=== PATIENT | female | born 1985 | race Caucasian/White ===

== ENCOUNTER 2019-02-07 10:30 | Inpatient (IN) | payer MEDICAID ==
[~2019-02-07] VITALS: Ht 147.3 cm; Wt 68.8 kg
[~2019-02-07 10:30] MED LIST: PHENYLephrine 10 MG INJ ONE
--- NOTE | 2019-02-07 11:58 | NSTRPT ---
NST Information Datetime Report Generated by CPN: 02/07/2019 11:58 Datetime: 02/01/2019 10:52 NST Information EGA: 36.5 Test Number: 6 Time on Monitor: 02/01/2019 11:44 Time off Monitor: 02/01/2019 12:08 NST Duration (Min): 24 Reason for NST: Cholestasis Test and Monitor Explained: Monitor Explained; Test Explained; Verbalized Understanding Pulse: 74 Resp: 18 SBP: 102 DBP: 56 Test Evaluation NST Interventions: None Patient States Movement: Present Contraction Frequency: NONE FHR Baseline : 140 Variability: Moderate 6-25bpm Accelerations: 15X15 Decelerations: None FHR Category: Category I NST Results: Reactive Comments: To u/s. SHARON 10.4CM. cephailc. EFW: 3127gm. 6 lbs. 14oz. 56%, AC: 78%, Electronically Signed By E-Signature: with User ID: [id number] Datetime: 01/28/2019 11:10 NST Information EGA: 36.1 NST Duration (Min): 21 Datetime: 01/25/2019 09:52 NST Information EGA: 35.5 NST Duration (Min): 33 Electronically Signed By E-Signature: with User ID: [id number] Datetime: 01/21/2019 08:45 NST Information EGA: 35.1 NST Duration (Min): 31 Datetime: 01/13/2019 08:12 NST Information EGA: 34.0 NST Duration (Min): 27 Datetime: 01/10/2019 08:55 NST Information EGA: 33.4 NST Duration (Min): 37
[2019-02-07 12:38] VITALS: BP 104/61; PULSE 103; RESP 18; Ht 147.3 cm; Wt 68.8 kg
[2019-02-07] MEDS: LACTATED RINGER'S 1,000 ML IV SCH ×3 (12:54→20:58)
[2019-02-07] MEDS ORDERED: CARBOPROST 250 MCG INJ IM PRN ×2 (13:00→21:30)
[2019-02-07] MEDS ORDERED: OXYTOCIN 30 UNITS/LR 500 ML IV SCH (13:00)
[2019-02-07] MEDS ORDERED: MISOPROSTOL 200 MCG TAB PR PRN ×2 (13:00→21:30)
[2019-02-07] MEDS ORDERED: OXYTOCIN 30 UNITS/LR 500 ML IV PRN ×2 (13:00→21:30)
[2019-02-07] MEDS ORDERED: METHYLERGONOVINE 0.2 MG INJ IM PRN ×2 (13:00→21:30)
[2019-02-07] MEDS ORDERED: CEFAZOLIN 2 GM/50 ML (PMX) 50 ML IVPB SCH (13:00)
[2019-02-07] MEDS ORDERED: CITRIC ACID/NA CITRATE 30 ML CUP PO ONE (13:30)
[2019-02-07] MEDS ORDERED: AZITHROMYCIN 500MG/NS (PMX) 250 ML IVPB ONE (13:30)
--- NOTE | 2019-02-07 13:46 | PREAC ---
Date/Time of Note Date/Time of Note DATE: 02/07/19 TIME: 13:45 Anesthesia Eval and Record Evaluation Time Pre-Procedure Interview DATE: 02/07/19 TIME: 13:45 Age 34 Sex female NPO: 8 hrs Preoperative diagnosis repeat c section Planned procedure csection BTL Past Medical History Past Medical History: Includes : Gestational age: (39) Surgery & Anesthesia Issues No known issue Meds Anticoagulation: No Beta Nabila within 24 hr: No Reason Beta Nabila not given: Pt. not on B-Nabila Current Medications Lactated Ringer's 1,000 ml @ 125 mls/hr Q8H IV Last administered on 02/07/19at 12:54; Admin Dose 125 MLS/HR; Start 02/07/19 at 12:39 Cefazolin Sodium/ Dextrose 50 ml @ 100 mls/hr ONCE IVPB ; Start 02/07/19 at 13:00 Oxytocin/Lactated Ringer's 500 ml @ 125 mls/hr POST IV ; Start 02/07/19 at 13:00 Oxytocin/Lactated Ringer's 500 ml @ 0 mls/hr ONCE PRN IV .VAGINAL BLEEDING; Start 02/07/19 at 13:00 Methylergonovine Maleate (Methergine) 0.2 mg ONCE PRN IM .VAGINAL BLEEDING; Start 02/07/19 at 13:00 Carboprost Tromethamine (Hemabate) 250 mcg ONCE PRN IM .VAGINAL BLEEDING; Start 02/07/19 at 13:00 Misoprostol (Cytotec) 1,000 mcg ONCE PRN FL .VAGINAL BLEEDING; Start 02/07/19 at 13:00 Azithromycin 250 ml @ 250 mls/hr ONCE ONCE IVPB Last administered on 02/07/19at 13:35; Admin Dose 250 MLS/HR; Start 02/07/19 at 13:30; Stop 02/07/19 at 14:29 Meds reviewed: Yes Allergies Coded Allergies: No Known Allergy (Unverified , 02/07/19) Allergies Reviewed: Yes Labs/Studies Labs Reviewed: Reviewed by anesthesiologist Result Diagram: 02/07/19 1220 Laboratory Tests 02/07/19 12:20 Blood Bank Test 02/07/19 12:20 Antibody Screen NEGATIVE Blood Type A POSITIVE Rh Immune Globulin Candidate NO test: Positive Studies: ECG (n/a), CXR (n/a) Pre-procedure Exam Last vitals Vital Signs Date Temp Pulse Resp B/P (MAP) Pulse Ox O2 O2 Flow FiO2 Time Delivery Rate 02/07/19 98.7 103 18 104/61 12:38 (75) Airway: Adequate mouth opening Mallampati: Mallampati I Teeth: Normal Lung: Normal Heart: Normal ASA Physical Status ASA physical status: 2 Emergency: None Planned Anesthetic Neuraxial: Spinal Planned Pain Management Sub-arachniod narcotics Pre-operative Attestations Prior to commencing anesthesia and surgery, the patient was re-evaluated, there was verification of: *The patient's identity *The results of appropriate recent lab work and preoperative vital signs *The above evaluation not changing prior to induction *Anesthetic plan, risk benefits, alternative and complications discussed with patient/family; questions answered; patient/family understands, accepts and wishes to proceed. CLAIR ONEIL MD Feb 07, 2019 13:46
[2019-02-07] MEDS ORDERED: OXYTOCIN 30 UNITS/LR 500 ML IV ONE (16:39)
[2019-02-07] MEDS ORDERED: KETOROLAC 30 MG INJ ONE (16:39)
[2019-02-07] MEDS ORDERED: ONDANSETRON 4 MG INJ ONE (16:39)
[2019-02-07] MEDS ORDERED: METOCLOPRAMIDE 10 MG INJ ONE (16:39)
[2019-02-07] MEDS ORDERED: morphine SULFATE/PF (10 MG/10 ML) INJ ONE (16:39)
--- NOTE | 2019-02-07 17:55 | HP ---
Date/Time of Note Date/Time of Note DATE: 02/07/19 TIME: 17:48 OB - History Hx of Present Last Menstrual Period: May 11, 2009 Estimated Due Date: Feb 24, 2019 : 3 Para: 2 Care: Good Care Ultrasounds: Normal mid trimester US Obstetrical Complications: Other (Cholestasis of ) Medical Complications: None, Other (Previous section x2) Past Family/Social History * Past Medical, Surgical, Family and Obstetric Histories reviewed from chart. Blood Type: A+ Rubella: immune RPR/VDRL: Negative GBS Status: Negative HBsAG: Negative OB Admission Exam Vital Signs Vital Signs Vital Signs Date Temp Pulse Resp B/P (MAP) Pulse Ox O2 O2 Flow FiO2 Time Delivery Rate 02/07/19 98.7 103 18 104/61 12:38 (75) Physical Exam HEENT: WNL Heart: Rhythm Normal Lungs: Clear, Equal Abdomen: WNL Extremities: Normal Reflexes: Normal Cervical Dilatation: None Effacement: 0% Station: -3 Membranes: Intact Heart Rate: 140's Accelerations: Accelerations Present Decelerations: No Decelerations Varibility: Marked Contractions on Admission: None Last 72 hours Lab Results CBC & BMP 02/07/19 12:20 OB Assessment/Plan Reason for admission: section Other Assessment: 37 weeks gestation Previous x2 Cholestasis of Desires sterilization Other plan: Repeat and tubal ligation MICHAEL MARQUES MD Feb 07, 2019 17:55
[2019-02-07] MEDS ORDERED: morphine (1 MG/ML) 10ML SYRINGE IV PRN ×3 (18:00)
[2019-02-07] MEDS ORDERED: ONDANSETRON 4 MG INJ IV PRN ×2 (18:00→18:30)
[2019-02-07] MEDS ORDERED: DIPHENHYDRAMINE 50 MG INJ IV PRN ×2 (18:00→18:30)
--- NOTE | 2019-02-07 18:01 | OPR ---
Operative Report Planned Procedure Procedure date Feb 07, 2019 Procedure(s) Repeat and bilateral tubal ligation Performed by see signature line Glass Cutting Machine Operator: PRABHJOT TOWNSEND M.D. Anesthesiologist: CLAIR ONEIL MD Pre-procedure diagnosis 37+ weeks gestation Previous x2 Cholestasis of Desired sterilization [id number] Anesthesia Type: Bxyhi7s spinal Post-Procedure Post-procedure diagnosis Status post and tubal ligation Findings Live Baby in OT position Clear amniotic fluid Normal-appearing right and left fallopian tubes and ovaries Estimated Blood Loss: 500 - 600 mls Specimen(s) Segments of right and left fallopian tubes Grafts/Implant(s) none Complication(s) none Pt Condition post procedure: stable Disposition: PACU Procedure Description Under satisfactory anaesthesia a Pfannenstiel incision was made two fingerbreadth above and parallel to the symphysis of pubis around the previous scar and previous scar was removed Incision was extended laterally to the border of the Recti muscles on either sides. Incision was carried down with sharp and blunt dissection until fascia was reached. Anterior Recti muscle fascia was incised in mid portion and incision extended laterally to the border of skin incision. Fascia was mobilized from muscle superiorly and Recti muscles were from midline using sharp and blunt dissection. Peritoneum was visualized; Avoiding bowel and bladder it was incised . Incision was extended superiorly and inferiorly. Bladder blade was placed. Posterior peritoneum covering the lower segment of the uterus and lower segment of the uterus were incised.Low transverse uterine incision was made on lower segment of the uterus. Incision extended laterally to the border of Round Lig. on either sides and baby was delivered from OT. position . Amniotic fluid appeared clear. Cord blood was obtained and cord had 3 vessels . Placenta was delivered spontaneously and appeared intact and complete. Intrauterine cavity was rubbed with a laparotomy sponge. Uterine incision was closed in 2 layers using running stitches of No1 Monocryl. Hemostasis appeared secure. Ovaries and Fallopian tubes were within normal limits. Bilateral Tubal Ligation was performed by following procedure: R fallopian tube was raised in mid portion; a Yani clamp was placed below the fimbriae extending to proximal portion of the fallopian tube. Another clamp was placed parallel to the first and after incising the fallopian tube the stump was sutured using 0 Vicryl stitch. Hemostasis was secure . Same procedure was done on fallopian tube on the opposite side. Hemostasis appeared to be secure on ligated sites of either fallopian tubes. Announcing needle, lap sponge and instrument count to be correct abdomen was closed in layers as follows: Peritoneum and Recti muscles with running stitches of 2-0 Vicryl. Fascia with running stitch of No 1 PDS. Subcutaneous tissue with running stitches of 2-0 M onocryl and skin was closed using david. Patient tolerated the procedure well and was transferred to [facility] in good condition. MICHAEL MARQUES MD Feb 07, 2019 18:01
[2019-02-07] MEDS ORDERED: KETOROLAC 30 MG INJ IV STA (18:02)
--- NOTE | 2019-02-07 18:04 | PAC ---
Date/Time of Note Date/Time of Note DATE: 02/07/19 TIME: 18:04 Post-Anesthesia Notes Post-Anesthesia Note Last documented vital signs Vital Signs Date Temp Pulse Resp B/P (MAP) Pulse Ox O2 O2 Flow FiO2 Time Delivery Rate 02/07/19 98.7 93 18 104/61 96 18:38 (75) Activity: WNL Respiratory function: WNL Cardiovascular function: WNL Mental status: Baseline Pain reasonably controlled: Yes Hydration appropriate: Yes Nausea/Vomiting absent: No CLAIR ONEIL MD Feb 07, 2019 18:04
[2019-02-07] MEDS ORDERED: morphine 2 MG INJ IV PRN ×3 (18:30)
[2019-02-07] MEDS ORDERED: NALOXONE (0.4 MG/ML) INJ IV PRN (18:30)
[2019-02-07 20:35] VITALS: BP 104/61; PULSE 73; RESP 18
[2019-02-07] MEDS ORDERED: LACTATED RINGER'S 1,000 ML IV SCH (21:22)
[2019-02-07] MEDS ORDERED: OXYCODONE/ACETAMINOPHEN (5/325) TAB PO PRN (21:30)
[2019-02-07] MEDS ORDERED: NA PHOSPHATE/BIPHOS 133 ML ENEMA PR PRN (21:30)
[2019-02-07] MEDS ORDERED: HYDROCODONE/APAP (5/325) TAB PO PRN (21:30)
[2019-02-07] MEDS ORDERED: LANOLIN HPA 1 PKT TOP PRN (21:30)
[2019-02-07] MEDS: IBUPROFEN 800 MG TAB PO SCH (22:00)
[2019-02-07] MEDS: KETOROLAC 30 MG INJ IV PRN (22:54)
[2019-02-07] MEDS: CEFAZOLIN 2 GM/50 ML (PMX) 50 ML IVPB SCH (23:58)
[2019-02-08 00:20] VITALS: BP 90/50; PULSE 92; RESP 18
[2019-02-08] MEDS: CLINDAMYCIN 300 MG CAP PO SCH ×5 (00:41→23:36)
[2019-02-08 03:39] VITALS: BP 85/51; PULSE 74; RESP 20
[2019-02-08] MEDS: IBUPROFEN 800 MG TAB PO SCH ×3 (06:00→21:58)
[2019-02-08 08:22] VITALS: BP 91/52; PULSE 82; RESP 16
--- NOTE | 2019-02-08 08:33 | OPPN ---
Date/Time of Note Date/Time of Note DATE: 02/08/19 TIME: 08:32 Anesthesia Follow up Anesthesia Follow up Last documented vital signs Vital Signs Date Temp Pulse Resp B/P (MAP) Pulse Ox O2 O2 Flow FiO2 Time Delivery Rate 02/08/19 98.8 82 16 91/52 (65) 96 Room Air 08:22 Respiratory function: WNL Cardiovascular function: WNL Comments A 34 year female s/p spinal with duramorph for post op pain. POD#1 is doing fine. No pain, itching, N/V, headache, or neural deficit. care per surgery CLAIR ONEIL MD Feb 08, 2019 08:33
[2019-02-08] MEDS: CEFAZOLIN 2 GM/50 ML (PMX) 50 ML IVPB SCH ×2 (08:54→14:18)
[2019-02-08] MEDS: SENNA/DOCUSATE NA (8.6MG/50MG) TAB PO SCH ×2 (09:10→21:58)
[2019-02-08] MEDS ORDERED: BISACODYL 10 MG SUPP PR ONE (10:30)
[2019-02-08 12:00] VITALS: BP 96/58; PULSE 74; RESP 17
[2019-02-08] MEDS: KETOROLAC 30 MG INJ IV PRN (12:25)
[2019-02-08 15:58] VITALS: BP 91/55; PULSE 67; RESP 18
--- NOTE | 2019-02-08 16:48 | PN ---
Date/Time of Note Date/Time of Note DATE: 02/08/19 TIME: 16:46 Assessment/Plan VTE Prophylaxis VTE Prophylaxis Intervention: ambulation Lines/Catheters IV Catheter Type (from Nrsg): Peripheral IV Assessment/Plan Assessment/Plan Status post postop day #1 Advance diet and ambulate Continue to monitor vital signs Subjective 24 Hr Interval Summary Passing flatus No bowel movement Constitutional: no complaints, improved, ambulates, BM, flatus, urine output Pain Control: well controlled Exam/Review of Systems Vital Signs Vitals Vital Signs Date Temp Pulse Resp B/P (MAP) Pulse Ox O2 O2 Flow FiO2 Time Delivery Rate 02/08/19 98.9 67 18 91/55 (67) 98 Room Air 15:58 Intake and Output 02/07/19 02/07/19 02/08/19 1515:00 23:00 07:00 IntakeIntake Total 250 ml 1500 ml 50 ml OutputOutput Total 802 ml 1100 ml BalanceBalance 250 ml 698 ml -1050 ml Exam Free Text/Dictation Abdomen is soft bowel sounds present and abdomen does not seem distended Incision is covered Constitutional: alert, oriented, well developed Psych: no complaints, nl mood/affect Head: normocephalic, atraumatic Eyes: nl conjunctiva, EOMI, nl lids, nl sclera ENMT: nl external ears & nose, nl lips & teeth, nl nasal mucosa & septum, mucosa pink and moist Neck: supple, non-tender Respiratory: clear to auscultation, normal air movement Cardiovascular: regular rate and rhythm, nl pulses Gastrointestinal: soft, nl liver, spleen, non-tender Musculoskeletal: nl extremities to inspection, nl gait and stance Extremities: normal pulses Neurological: LAW TUTOR II-XII intact, nl mental status, nl speech, nl strength Skin: nl turgor, rash or lesions Lymph: nl lymph nodes Results Result Diagram: 02/08/19 0710 MICHAEL MARQUES MD Feb 08, 2019 16:48
--- NOTE | 2019-02-08 16:51 | HP ---
Date/Time of Note Date/Time of Note DATE: 02/08/19 TIME: 16:48 OB - History Hx of Present Free Text/Dictation 35-year-old female 3 para 1 AB 1 at 37+ weeks gestation admitted for repeat because of a cholestasis Last Menstrual Period: May 21, 2018 Estimated Due Date: Feb 26, 2019 : 3 Para: 1 Spontaneous : 1 Care: Good Care Obstetrical Complications: Other (Cholestasis) Medical Complications: Other (Previous x1) Past Family/Social History * Past Medical, Surgical, Family and Obstetric Histories reviewed from chart. Blood Type: O+ Rubella: immune RPR/VDRL: Negative GBS Status: Negative HBsAG: Negative OB Admission Exam Vital Signs Vital Signs Vital Signs Date Temp Pulse Resp B/P (MAP) Pulse Ox O2 O2 Flow FiO2 Time Delivery Rate 02/08/19 98.9 67 18 91/55 (67) 98 Room Air 15:58 Physical Exam HEENT: WNL Heart: Rhythm Normal Lungs: Clear, Equal Abdomen: WNL Extremities: Normal Reflexes: Normal Cervical Dilatation: None Effacement: 0% Station: -3 Membranes: Intact Heart Rate: 140's Accelerations: Accelerations Present Decelerations: No Decelerations Varibility: Marked Contractions on Admission: None Last 72 hours Lab Results CBC & BMP 02/07/19 12:20 02/08/19 07:10 OB Assessment/Plan Reason for admission: section Other Assessment: Previous x1 37+ weeks gestation Cholestasis of Desires sterilization Other plan: Repeat and bilateral tubal ligation MICHAEL MARQUES MD Feb 08, 2019 16:51
[2019-02-08 19:45] VITALS: BP 105/61; PULSE 87; RESP 19
[2019-02-09] MEDS: CLINDAMYCIN 300 MG CAP PO SCH ×4 (06:11→23:37)
[2019-02-09] MEDS: IBUPROFEN 800 MG TAB PO SCH ×3 (06:12→21:16)
[2019-02-09 08:00] VITALS: BP 97/72; PULSE 84; RESP 16
[2019-02-09] MEDS: SENNA/DOCUSATE NA (8.6MG/50MG) TAB PO SCH ×2 (11:24→21:15)
[2019-02-09 15:08] VITALS: BP 90/52; PULSE 90; RESP 17
--- NOTE | 2019-02-09 17:48 | DS ---
Date/Time of Note Date/Time of Note Home today or next day DATE: 02/09/19 TIME: 17:47 Obstetrical Discharge Record Final Diagnosis Final Diagnosis: Term delivered Other Final Diagnosis Status post repeat and tubal ligation Vaginal Delivery Obstetrical Delivery: Bilateral Tubal Ligation Section Section: Repeat Condition on Discharge Physical Assessment Last Vitals: See nurse's notes Voiding: Yes Bowel Movement: Yes Breast: Soft, non-tender, Filling Fundus: Firm Abdomen and Incision: Abdomen is soft with present bowel sounds Incision is healing well without induration Calf Tenderness: No Patient Condition: Good MICHAEL MARQUES MD Feb 09, 2019 17:48
--- NOTE | 2019-02-09 17:50 | DS ---
Date/Time of Note Date/Time of Note DATE: 02/09/19 TIME: 17:48 Discharge Summary Admission/Discharge Info Admit Date/Time Feb 07, 2019 at 11:56 Discharge Date/Time February 10 or February [id number] Discharge Diagnosis Status post repeat and bilateral tubal ligation Patient Condition: Good Procedures Repeat section and bilateral tubal ligation Hx of Present Illness 34-year-old female had repeat and tubal ligation Hospital Course Hospital course remained uncomplicated Patient diet well and was ambulating without complications Discharge home on his second or third day with good prognosis and condition Follow-up Plan 4 days in clinic for staple removal Primary Care Provider Care Physician No Primary Time spent on discharge: > 30 minutes Pending Labs Laboratory Tests Test 02/09/19 07:35 White Blood Count 13.5 10^3/ul (4.8-10.8) Red Blood Count 3.43 10^6/ul (4.20-5.40) Hemoglobin 10.1 g/dl (12.0-16.0) Hematocrit 30.7 % (37.0-47.0) Mean Corpuscular Volume 89.5 fl (82.0-101.0) Mean Corpuscular Hemoglobin 29.4 pg (29.0-33.0) Mean Corpuscular Hemoglobin Concent 32.9 g/dl (32.0-37.0) Red Cell Distribution Width 14.1 % (11.5-14.5) Platelet Count 234 10^3/UL (140-415) Mean Platelet Volume 10.1 fl (7.4-10.4) Immature Granulocytes % 1.200 % (0.001-0.429) Neutrophils % 72.4 % (39.0-77.0) Lymphocytes % 18.7 % (15.0-51.0) Monocytes % 6.0 % (0.0-11.0) Eosinophils % 1.4 % (0.0-7.0) Basophils % 0.3 % (0.0-2.0) Nucleated Red Blood Cells % 0.0 /100WBC (0.0-0.0) Immature Granulocytes # 0.160 10^3/ul (0.0-0.031) Neutrophils # 9.8 10^3/ul (1.6-7.5) Lymphocytes # 2.5 10^3/ul (0.8-2.9) Monocytes # 0.8 10^3/ul (0.3-0.9) Eosinophils # 0.2 10^3/ul (0.0-0.5) Basophils # 0.0 10^3/ul (0.0-0.1) Nucleated Red Blood Cells # 0.0 10^3/ul (0.0-0.0) MICHAEL MARQUES MD Feb 09, 2019 17:50
--- NOTE | 2019-02-09 17:52 | PD.PPDC ---
DEFECT CUTTER Discharge Instruction Provider Information Physician Information 35-year-old female had repeat and bilateral tubal ligation Diagnosis [id number] Final Diagnosis: Hfxfl1t Status post repeat and bilateral tubal ligation Condition Inugj7Mr Patient Condition: Iopsb3s Good Diet Aztzp8Id Diet: Gwfho1q Resume Regular Diet Activity/Restrictions Qjzpb1Ns Activity: Ufsvo8p May Shower Myfdf8Yw Restrictions: Dyday6d No Exercising No Lifting Nothing in the Vagina Woqji3De Return to Work or School: Jittr6j Apr 11, 2019 Wound/Drain Care Instructions Jweay0Eq Wound/Drain Care Instructions: Oxska2f Keep clean and dry Follow-up Follow-up with Physician: 4, Day/Days (In clinic for staple removal) Return to clinic for Fzvws8Tw ACCOUNT MANAGEMENT SPECIALIST Instructions: Xaiwe9r Fever greater than 101 Chills Hjuhg0Ta OB Instructions: Sjvvh1c Breast Tenderness Depression Comment: Pelvic rest and no hard activity for 2 months Guokg3Jf Surgical Instructions: Gkumn9j Incisional Drainage Incisional Redness MICHAEL MARQUES MD Feb 09, 2019 17:52
[2019-02-09] MEDS ORDERED: IBUP800T48 PO ×2 (17:55→17:57)
[2019-02-09] MEDS ORDERED: ACET325T33 PO ×2 (17:55→17:57)
[2019-02-09] MEDS ORDERED: ACETAMINOPHEN 325 MG TAB PO PRN (18:00)
[2019-02-09 19:20] VITALS: BP 112/65; PULSE 98; RESP 19
[2019-02-10 04:11] VITALS: BP 108/78; PULSE 84; RESP 19
[2019-02-10] MEDS: CLINDAMYCIN 300 MG CAP PO SCH ×2 (05:43→13:24)
[2019-02-10] MEDS: IBUPROFEN 800 MG TAB PO SCH ×2 (05:43→13:24)
[2019-02-10 08:20] VITALS: BP 126/79; PULSE 78; RESP 20
[2019-02-10] MEDS ORDERED: DIPHTH/TET/ACEL PERTUSS (ADULT) 0.5 ML VIAL IM* ONE (09:00)
[2019-02-10] MEDS ORDERED: MEASLES,MUMPS,RUBELLA VACCINE INJ SC* ONE (09:00)
[2019-02-10] MEDS: SENNA/DOCUSATE NA (8.6MG/50MG) TAB PO SCH (10:33)
[2019-02-10 15:39] VITALS: BP 109/74; PULSE 102; RESP 18
--- NOTE | 2019-02-11 16:45 | DELSUM ---
Delivery Summary A-C Datetime Report Generated by CPN: 02/11/2019 16:45 DELIVERY PERSONNEL Back Tender Pulp Drier: Basilia Alvarez MATERNAL INFORMATION Delivery Anesthesia: Spinal Medications in Delivery: SEE ANESTHESIA Delivery QBL (ml): 552 Placenta Cultured: No Maternal Complications: Other Other Maternal Complications: CHOLESTASIS IN LABOR SUMMARY EDC: 02/24/2019 00:00 No. Babies in Womb: 1 Attempted: No Labor Anesthesia: None LABOR INFORMATION Reason for Induction: Not Applicable Oxytocin: N/A Group B Beta Strep: Positive Antibiotics # of Doses: 2 Antibiotics Time of Last Dose: 02/07/2019 16:48 Steroids Given: None Reason Steroids Not Administered: Not Applicable MEMBRANES Membranes Rupture Method: Artificial Rupture of Membranes: 02/07/2019 17:06 Length of Rupture (hr): 0.02 Amniotic Fluid Color: Clear Amniotic Fluid Amount: Moderate Amniotic Fluid Odor: None STAGES OF LABOR Stage 3 hr: 0 Stage 3 min: 1 CSECTION DELIVERY Primary Indication: Repeat Elective CSection Urgency: Elective CSection Incidence: Repeat Labor: N/A Elective: Elective CSection Incision: Lower Uterine Transverse Sterilization Procedure: Radha BABY A INFORMATION Delivery Date/Time: 02/07/2019 17:07 Method of Delivery: Born in Route : No : N/A Forceps: N/A Vacuum Extraction: N/A Shoulder Dystocia : N/A SHOULDER DYSTOCIA BABY A Infant Delivery Date/Time: 02/07/2019 17:07 PRESENTATION/POSITION BABY A Presentation: Cephalic Cephalic Presentation: Vertex Vertex Position: Left Occipital Anterior Breech Presentation: N/A PLACENTA INFORMATION BABY A Placenta Delivery Time : 02/07/2019 17:08 Placenta Method of Delivery: Manual Removal Placenta Status: Delivered SCORES BABY A Heart Rate 1 min: >100 bpm Resp Effort 1 min: Good Cry Reflex Irritability 1 min: Cough/Sneeze/Pulls Away Muscle Tone 1 min: Active Motion Color 1 min: Blue/Pale Resuscitation Effort 1 min: Tactile Stimulation SCORE 1 MIN: 8 Heart Rate 5 min: >100 bpm Resp Effort 5 min: Good Cry Reflex Irritability 5 min: Cough/Sneeze/Pulls Away Muscle Tone 5 min: Active Motion Color 5 min: Body [place], Extremit Blue Resuscitation Effort 5 min: Tactile Stimulation SCORE 5 MIN: 9 INFORMATION BABY A Gestational Age at Delivery: 37.4 Gestational Status: Early Term- 37- 38.6 Weeks Infant Outcome : Liveborn Condition : Stable Sex: Female IDENTIFICATION/MEDS BABY A ID Band Number: [id number] ID Band Location: Right Leg; Left Arm Sensor Applied: Yes Sensor Number: [id number] Sensor Location : Cord Clamp Vitamin K Given : Not Given Erythromycin Given: Not Given WEIGHT/LENGTH BABY A Infant Birthweight (gm): 3030 Weight (lb): 6 Infant Weight (oz): 11 Length (in): 19.00 Length (cm): 48.26 CORD INFORMATION BABY A No. Cord Vessels: 3 Nuchal Cord : N/A Cord Blood Taken: Yes Suction: Mouth; Nose ASSESSMENT BABY A Infant Complications: None Physical Findings at Delivery: Within Normal Limits Infant Respirations: Appears Normal Gas Worker/ALS Called : No Infant Care By: CHRISTIE KISER RN Transferred To: Remains with Mother
== END 2019-02-10 16:35 | disposition home or self-care (01) | DRG 783 ==
LOC: L-D 11:56 → PP1 20:34
PROVIDERS: ADMIT Obstetrics & Gynecology; ATTEND Obstetrics & Gynecology
PROC: 0UB70ZZ Excision of Bilateral Fallopian Tubes, Open Approach (ICD-10-PCS; 2019-02-07)
PROC: 10D00Z1 Extraction of Products of Conception, Low, Open Approach (ICD-10-PCS; principal; 2019-02-07 15:30)
DX: O26.62 Liver and biliary tract disorders in childbirth (principal); K83.1 Obstruction of bile duct; O34.219 Maternal care for unspecified type scar from previous cesarean delivery; G89.18 Other acute postprocedural pain; Z3A.37 37 weeks gestation of pregnancy; Z37.0 Single live birth; Z30.2 Encounter for sterilization
CPT/HCPCS: 81001; 85025; 85610; 85730; 86592; 86850; 86900; 86901; 87340; 88302; 99464; J0456; J0690; J1885; J2274; J2405; J2590; J2765; J7120